=== PATIENT | male | born 1960 | race Hispanic/Latino ===

== ENCOUNTER 2016-07-22 15:21 | Inpatient (IN) | payer OTHER ==
[2016-07-22 15:22] VITALS: BMI 37.2
--- NOTE | 2016-07-22 16:13 | ED PDOC ---
HPI: General Adult Time Seen by Provider: 07/22/16 15:29 Chief Complaint (Nursing): Medical Clearance Chief Complaint (Provider): transfusion History Per: Patient History/Exam Limitations: no limitations Additional Complaint(s): 56yo male is sent from [facility] for blood transfusion after hemoglobin decreased by 1gram from previous due to minimal bleeding from left shoulder fracture. No active bleeding. Past Medical History Vital Signs: Last Vital Signs Temp 98.2 F 07/23/16 17:33 Pulse 68 07/23/16 17:33 Resp 20 07/23/16 17:33 BP 132/77 07/23/16 06:00 Pulse Ox 100 07/23/16 07:02 - Medical History PMH: Anemia, Anxiety, Arthritis, Back Problems, CHF (was told I had symptoms of CHF), COPD, Depression, Fractures (right arm, knee,back,), HTN Denies: Diabetes, Hepatitis, HIV, Chronic Kidney Disease, Seizures, Sexually Transmitted Disease - Surgical History Surgical History: Endoscopy - Family History Family History: States: Unknown Family Hx - Immunization History Hx Tetanus Toxoid Vaccination: No Hx Influenza Vaccination: No Hx Pneumococcal Vaccination: No - Home Medications Home Medications: Ambulatory Orders Medication Instructions Recorded FLUoxetine [Prozac] 20 mg PO DAILY cap 07/22/16 Folic Acid 1 mg PO DAILY #0 tab 07/22/16 Ketorolac Tromethamine [Toradol] 10 mg PO Q6 PRN #0 tab 07/22/16 Multimineral/Multivitamin 1 tab PO DAILY tab 07/22/16 [Therapeutic-M Tab] Thiamine [Vitamin B1 Tab] 100 mg PO DAILY tab 07/22/16 - Allergies Allergies/Adverse Reactions: Allergies Allergy/AdvReac Type Severity Reaction Status Date / Time No Known Allergies Allergy Verified 07/22/16 15:25 Review of Systems ROS Statement: Except As Marked, All Systems Reviewed And Found Negative Cardiovascular: Negative for: Chest Pain Respiratory: Negative for: Shortness of Breath Physical Exam - Reviewed Nursing Documentation Reviewed: Yes Vital Signs Reviewed: Yes - Physical Exam Head Exam: Positive for: ATRAUMATIC, NORMAL INSPECTION, NORMOCEPHALIC Skin: Positive for: Warm, Dry Eye Exam: Positive for: EOMI, PERRL, Other (ecchymosis to left eyelid) Cardiovascular/Chest: Positive for: Regular Rate, Rhythm Respiratory: Positive for: Normal Breath Sounds. Negative for: Rales, Rhonchi, Wheezing Extremity: Positive for: Other (left arm in sling but moving all digits) Neurologic/Psych: Positive for: Alert, Oriented - Laboratory Results Result Diagrams: 07/23/16 10:30 - ECG O2 Sat by Pulse Oximetry: 98 (RA) Pulse Ox Interpretation: Normal Medical Decision Making Medical Decision Making: Will transfuse 2 units. consent was obtained by Dr. Coffey. Will then discharge to [facility]. ED OBSERVATION Time of observation admission: 15:30 - Observation admission statement Patient is being placed in observation because:: Anemia Disposition - Clinical Impression Clinical Impression: Depression, Anemia - Patient ED Disposition Is Patient to be Admitted: Transfer of Care - Disposition Disposition Time: 00:00 Condition: STABLE Patient Signed Over To: Tomás Perry Handoff Comments: Pending transfusion, transfer to [facility]. Additional Comments - Additional Comments Additional Comments: Scribe Attestation: Documented by Jatin Santos acting as a scribe for Tessa Church MD Provider Scribe Attestation: All medical record entries made by the Scribe were at my direction and personally dictated by me. I have reviewed the chart and agree that the record accurately reflects my personal performance of the history, physical exam, medical decision making, and the department course for this patient. I have also personally directed, reviewed, and agree with the discharge instructions and disposition.
[2016-07-22] MEDS ORDERED: Iodixanol 320 MG/ML 100 ML BOTTLE IV ONE (16:54)
--- NOTE | 2016-07-23 | ED PDOC ---
- ECG O2 Sat by Pulse Oximetry: 100 Medical Decision Making Medical Decision Making: signout from Dr Church at midnight: pt to get second unit blood and then readmit to psych under psychiatrist Dr Gates pt got second unit. informed hoe worker Aleksandra to inform Dr gates of admission pt reaccepted to [facility] Disposition - Clinical Impression Clinical Impression: Depression - POA Present On Arrival: None - Disposition Disposition: Admitted as In-Patient Disposition Time: 05:00 Condition: IMPROVED
[2016-07-23] MEDS ORDERED: Magnesium Hydroxide Susp 30 ml UD PO PRN (05:19)
[2016-07-23] MEDS ORDERED: Bismuth Subsalicylate 262 mg/15 ml Sus (240 ml) PO PRN (05:19)
[2016-07-23] MEDS ORDERED: Alum-Mag Hydrox-Simethicone Susp (30 mL) PO PRN (05:19)
[2016-07-23] MEDS ORDERED: DiphenhydrAMINE 50 mg/ml Inj IM PRN (05:21)
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
[2016-07-23] MEDS: Multivitamin With Minerals Tab PO SCH (09:21)
[2016-07-23 10:36] LABS: BASO # 0.1 K/uL (0.0-0.2); BASO % 1.2 % (0.0-2.0); EOS # 0.2 K/uL (0.0-0.7); EOS % 4.6 % (0.0-4.0); HEMATOCRIT 24.1 % (35.0-51.0); LYMPH # 0.4 K/uL (1.0-4.3); LYMPH % 10.2 % (20.0-40.0); MEAN CELL VOLUME 76.4 fl (80.0-94.0); MEAN CORPUSCULAR HEMOGLOBIN 25.9 pg (27.0-31.0); MEAN CORPUSCULAR HGB CONC 33.9 g/dL (33.0-37.0); MEAN PLATELET VOLUME 8.5 fl (7.2-11.7); MONO # 0.6 K/uL (0.0-0.8); MONO % 14.5 % (0.0-10.0); NEUT % 69.5 % (50.0-75.0); RED CELL DISTRIBUTION WIDTH 17.2 % (11.5-14.5); WHITE BLOOD COUNT 4.4 K/uL (4.8-10.8)
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
[2016-07-23] MEDS ORDERED: Iodixanol 320 MG/ML 100 ML BOTTLE IV ONE (15:41)
[2016-07-23 23:03] VITALS: O2SAT 98
[2016-07-24 07:21] LABS: BASO % 0.7 % (0.0-2.0); EOS # 0.3 K/uL (0.0-0.7); EOS % 6.1 % (0.0-4.0); HEMATOCRIT 25.2 % (35.0-51.0); LYMPH # 0.6 K/uL (1.0-4.3); LYMPH % 13.5 % (20.0-40.0); MEAN CELL VOLUME 76.8 fl (80.0-94.0); MEAN CORPUSCULAR HEMOGLOBIN 25.4 pg (27.0-31.0); MEAN CORPUSCULAR HGB CONC 33.1 g/dL (33.0-37.0); MEAN PLATELET VOLUME 8.2 fl (7.2-11.7); MONO # 0.6 K/uL (0.0-0.8); MONO % 13.7 % (0.0-10.0); NEUT # 2.9 K/uL (1.8-7.0); NRBC % 0.1 % (0.0-0.0); RED CELL DISTRIBUTION WIDTH 17.7 % (11.5-14.5); WHITE BLOOD COUNT 4.4 K/uL (4.8-10.8)
[2016-07-24 07:37] LABS: BLOOD UREA NITROGEN 20 mg/dl (9-20); CARBON DIOXIDE 25 mmol/L (22-30); CHLORIDE 106 mmol/L (98-107); GFR AFRICAN-AMERICAN > 60; GLUCOSE,RANDOM 96 mg/dL (75-110); SODIUM 141 mmol/l (132-148)
[2016-07-24] MEDS: Multivitamin With Minerals Tab PO SCH (08:06)
--- NOTE | 2016-07-24 09:43 | PCM.PYCHPN ---
Psychiatric Progress Note - Psychiatric Progress Note Patient seen today, length of contact: Patient evaluated, case discussed with team, chart reviewed, 35 min Patient Chief Complaint: "I'm okay, in some pain" Problems Identified/Issues Discussed: Patient reports that his mood is starting to improve. He was oriented x3 and was able to engage pleasantly in conversation. He reports pain in his fractured arm. He denies current AH/VH/paranoia/delusions. He denied manic symptoms. He had normal rate/rhythm of speech. He has been eating and sleeping well. Medication Change: No Medical Record Reviewed: No Mental Status Examination - Cognitive Function Orientation: Person, Place, Situation, Time Memory: Intact Attention: WNL Concentration: WNL Association: WNL Fund of Knowledge: [facility] Decription of patient's judgement and insights: Fair I/J - Mood Mood: Depressed, Anxious - Affect Affect: Broad - Speech Speech: Appropriate - Formal Thought Process Formal Thought Process: No Impairment Psychotic Thoughts and Behaviors: NO AH/VH/paranoia/delusions - Suicidal Ideation Suicidal Ideation: No - Homicidal Ideation Homicidal Ideation: No Goal/Treatment Plan - Goal/Treatment Plan Need for Continued Stay: Remain at risks for inpatient hospitalization, Severe depression anxiety Progress Toward Problem(s) and Goals/Treatment Plan: 56 yo male with Major Depressive Disorder with Psychotic features, psychotic features now improved; cocaine abuse, alcohol abuse, benzodiazepine abuse; readmitted to [facility] after her received a blood transfusion, continues to report feelings of significant depression and anxiety. He requires inpatient psychiatric admission for treatment and stabilization. Plan: -Continue Prozac 20 mg PO Daily and Zyprexa 5 mg PO HS -Individual, group and mileu tx -Psychoeducation; patient counseled on the importance of compliance with medications and treatment -Orthopedic consult re: fractured (L) arm -Medicine consult appreciated -Possible discharge on Friday if symptoms continue to improve Estimated Date of D/C: 07/26/16
--- NOTE | 2016-07-24 13:30 | CT ---
PROCEDURE: Left upper extremity CT angiography with and without contrast. HISTORY: communited fx left humerus. TECHNIQUE: 2.5 millimeter Contiguous axial images of the left upper extremity were obtained pre and post IV contrast. Contrast phase is venous. Coronal and sagittal reformats or also generated. IV contrast dose: 100 cubic centimeters Visipaque 320 Radiation: 2563.54 mGy-cm FINDINGS: Vasculature: The visualized aortic arch and major branches are normal. Left subclavian artery, axillary artery, brachial artery are normal. No evidence of vascular injury. Subclavian vein, axillary vein, basilic vein, brachial vein and remainder veins in the arm are normal. OSSEOUS: Severely comminuted fracture left humeral head and metaphysis. The humeral shaft is impacted and displaced laterally. There is significant soft tissue swelling of the rotator cuff muscles and deltoid. IMPRESSION: Severely comminuted fracture of the left humeral head. No signs of injury to axillary artery or vein.
[2016-07-25 08:23] LABS: BASO # 0.1 K/uL (0.0-0.2); BASO % 1.1 % (0.0-2.0); EOS # 0.3 K/uL (0.0-0.7); EOS % 5.4 % (0.0-4.0); HEMATOCRIT 26.9 % (35.0-51.0); LYMPH # 0.7 K/uL (1.0-4.3); MEAN CELL VOLUME 78.4 fl (80.0-94.0); MEAN CORPUSCULAR HEMOGLOBIN 25.4 pg (27.0-31.0); MEAN CORPUSCULAR HGB CONC 32.4 g/dL (33.0-37.0); MEAN PLATELET VOLUME 8.7 fl (7.2-11.7); MONO # 0.6 K/uL (0.0-0.8); MONO % 11.8 % (0.0-10.0); NEUT # 3.4 K/uL (1.8-7.0); NEUT % 67.7 % (50.0-75.0); RED CELL DISTRIBUTION WIDTH 18.5 % (11.5-14.5)
[2016-07-25] MEDS: Multivitamin With Minerals Tab PO SCH (08:27)
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
[2016-07-25 16:35] VITALS: RESP 18
[2016-07-26 06:00] VITALS: BP 127/73; PULSE 68; TEMP 97
[2016-07-26] MEDS: Multivitamin With Minerals Tab PO SCH (08:41)
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
== END 2016-07-26 14:30 | disposition home or self-care (01) | DRG 430 ==
LOC: H.ER 15:21 → H.EROBSV 15:30 → OBSVTOIN 07-23 03:11 → H.ERHOLD 07-23 03:11 → H.STEP 07-23 04:32
PROVIDERS: ADMIT Psychiatry & Neurology Psychiatry; ATTEND Psychiatry & Neurology Psychiatry
PROC: 30233N1 Transfusion of Nonautologous Red Blood Cells into Peripheral Vein, Percutaneous Approach (ICD-10-PCS; principal; 2016-07-23)
DX: F32.3 Major depressive disorder, single episode, severe with psychotic features (principal); D62 Acute posthemorrhagic anemia; I10 Essential (primary) hypertension; J44.9 Chronic obstructive pulmonary disease, unspecified; F14.10 Cocaine abuse, uncomplicated; D64.9 Anemia, unspecified; F10.10 Alcohol abuse, uncomplicated; S42.302D Unspecified fracture of shaft of humerus, left arm, subsequent encounter for fracture with routine healing; F19.10 Other psychoactive substance abuse, uncomplicated; F41.9 Anxiety disorder, unspecified

== ENCOUNTER 2016-08-19 20:27 | Emergency (ER) | payer SELFPAY ==
[2016-08-19 20:27] VITALS: BMI 37.2
[2016-08-19 20:30] VITALS: BP 125/76; PULSE 86; RESP 18; TEMP 99; O2SAT 100
--- NOTE | 2016-08-19 22:09 | ED PDOC ---
HPI: General Adult Time Seen by Provider: 08/19/16 21:12 Chief Complaint (Nursing): Dizziness/Lightheaded Chief Complaint (Provider): Dizziness/Lightheadedness History Per: Patient History/Exam Limitations: no limitations Onset/Duration Of Symptoms: Days (x1) Additional Complaint(s): 21:12 Bonilla Suero is a 56 year old male with a history of hypertension, alcohol abuse , psychosis, and multiple orthopedic surgeries that presents to the ED with a chief complaint of intermittent dizziness and lightheadedness that he has been experiencing for the past day. Patient denies any headache, chest pain, or syncope, as well as denies any hallucinations, or suicidal/homicidal ideations. Of Note: Patient has no PMD at the moment Past Medical History Reviewed: Historical Data, Nursing Documentation, Vital Signs Vital Signs: Last Vital Signs Temp 99 F 08/19/16 20:28 Pulse 86 08/19/16 20:28 Resp 18 08/19/16 20:28 BP 125/76 08/19/16 20:28 Pulse Ox 100 08/20/16 06:32 - Medical History PMH: Anemia, Anxiety, Arthritis, Back Problems, CHF (was told I had symptoms of CHF), COPD, Depression, Fractures (right arm, knee,back,), HTN Denies: Diabetes, Hepatitis, HIV, Chronic Kidney Disease, Seizures, Sexually Transmitted Disease - Surgical History Surgical History: Endoscopy - Family History Family History: States: Unknown Family Hx - Immunization History Hx Tetanus Toxoid Vaccination: No Hx Influenza Vaccination: No Hx Pneumococcal Vaccination: No - Home Medications Home Medications: Ambulatory Orders Medication Instructions Recorded FLUoxetine [Prozac] 20 mg PO DAILY #30 cap 07/26/16 Folic Acid 1 mg PO DAILY #30 tab 07/26/16 Ibuprofen [Motrin Tab] 600 mg PO Q6 PRN #30 tab 07/26/16 Olanzapine [Zyprexa] 5 mg PO HS #30 tablet 07/26/16 Thiamine [Vitamin B1 Tab] 100 mg PO DAILY #30 tab 07/26/16 - Allergies Allergies/Adverse Reactions: Allergies Allergy/AdvReac Type Severity Reaction Status Date / Time No Known Allergies Allergy Verified 07/22/16 15:25 Review of Systems Cardiovascular: Positive for: Light Headedness. Negative for: Chest Pain Neurological: Positive for: Dizziness. Negative for: Headache, Other (no syncope) Psych: Negative for: Suicidal ideation (no SI/HI or hallucinations) Physical Exam - Reviewed Nursing Documentation Reviewed: Yes Vital Signs Reviewed: Yes - Physical Exam Appears: Positive for: Non-toxic, No Acute Distress (Patient appears somewhat disheveled) Head Exam: Positive for: ATRAUMATIC, NORMOCEPHALIC Skin: Positive for: Normal Color, Warm Eye Exam: Positive for: Normal appearance, EOMI, PERRL Cardiovascular/Chest: Positive for: Regular Rate, Rhythm. Negative for: Murmur Respiratory: Positive for: Normal Breath Sounds. 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 Negative for: Motor/Sensory Deficits, Cerebellar Tests, Facial Droop - Laboratory Results Result Diagrams: 08/20/16 00:15 08/20/16 00:15 - ECG O2 Sat by Pulse Oximetry: 100 (RA) Pulse Ox Interpretation: Normal - CT Scan/US CT head Other Rad Studies (CT/US): Interpreted By Me, Read By Radiologist Other Rad Interpretation: no acute findings Medical Decision Making Medical Decision Makin:54 Initial Impression: Dehydration vs. Cardiac Arrhythmia vs. Vertigo (Central vs. Peripheral) Initial Plan: * CBC * Alcohol * BMP * Troponin * EKG * CT Head w/o contract * Reevaluation Scribe Attestation: Documented by Tonya Doss, acting as a scribe for Brielle Herrera MD. Provider Scribe Attestation: All medical record entries made by the Scribe were at my direction and personally dictated by me. I have reviewed the chart and agree that the record accurately reflects my personal performance of the history, physical exam, medical decision making, and the department course for this patient. I have also personally directed, reviewed, and agree with the discharge instructions and disposition. Disposition - Clinical Impression Clinical Impression: Dizziness - Patient ED Disposition Is Patient to be Admitted: Transfer of Care - Disposition Referrals: [facility] [Outside] Disposition: Transfer of Care Disposition Time: 12:00 Condition: FAIR Instructions: Dizziness (ED) Patient Signed Over To: Doron Mesa
--- NOTE | 2016-08-19 23:25 | CT ---
EXAM: CT Head Without Intravenous Contrast CLINICAL HISTORY: 56 years old, male; Signs and symptoms; Dizziness TECHNIQUE: Axial computed tomography images of the head/brain without intravenous contrast. This CT exam was performed using one or more of the following dose reduction techniques: automated exposure control, adjustment of the mA and/or kV according to patient size, and/or use of iterative reconstruction technique. Coronal and sagittal reformatted images were created and reviewed. COMPARISON: CT - HEAD W/O CONTRAST 06/18/2016 7:52:52 PM FINDINGS: Brain: There is mild prominence of ventricles and sulci, compatible with mild atrophy. There is mild diminished density of the white matter bilaterally, consistent with mild microangiopathy. There is no evidence of intracranial hemorrhage. No evidence of acute territorial infarction. No edema. Ventricles: See above. Bones/joints: Unremarkable. No acute fracture. Soft tissues: Unremarkable. Sinuses: There is mucosal thickening of multiple right ethmoid air cells. Mucosal thickening of the right maxillary sinus. Mastoid air cells: Unremarkable as visualized. No mastoid effusion. IMPRESSION: 1. No evidence for acute intracranial abnormality or displaced calvarial fracture. 2. Additional incidental and/or chronic findings as described.
[2016-08-20 00:37] LABS: BASO # 0.1 K/uL (0.0-0.2); BASO % 1.1 % (0.0-2.0); EOS # 0.2 K/uL (0.0-0.7); HEMATOCRIT 32.8 % (35.0-51.0); LYMPH # 0.9 K/uL (1.0-4.3); MEAN CORPUSCULAR HEMOGLOBIN 25.4 pg (27.0-31.0); MEAN CORPUSCULAR HGB CONC 32.1 g/dL (33.0-37.0); MEAN PLATELET VOLUME 8.6 fl (7.2-11.7); MONO # 0.6 K/uL (0.0-0.8); MONO % 11.3 % (0.0-10.0); NEUT # 3.5 K/uL (1.8-7.0); NEUT % 66.6 % (50.0-75.0); NRBC % 0.2 % (0.0-0.0); RED CELL DISTRIBUTION WIDTH 20.2 % (11.5-14.5); WHITE BLOOD COUNT 5.2 K/uL (4.8-10.8)
[2016-08-20 00:45] LABS: ALCOHOL SERUM < 10 mg/dl (0-10); BLOOD UREA NITROGEN 30 mg/dl (9-20); CALCIUM 9.2 mg/dL (8.4-10.2); CARBON DIOXIDE 23 mmol/L (22-30); CHLORIDE 107 mmol/L (98-107); GFR AFRICAN-AMERICAN > 60; GLUCOSE,RANDOM 88 mg/dL (75-110); POTASSIUM 4.3 MMOL/L (3.6-5.0); SODIUM 143 mmol/l (132-148)
--- NOTE | 2016-08-20 02:28 | ED PDOC ---
- Laboratory Results Result Diagrams: 08/20/16 00:15 08/20/16 00:15 - ECG O2 Sat by Pulse Oximetry: 100 (RA) Medical Decision Making Medical Decision Making: Patient s/o from Dr. Herrera at 0000 pending re-eval. 0400: On re-eval, patient states he is feeling better. Denies SI or HI. Reports he is not depressed currently. Will d/c in AM. Scribe Attestation: Documented by Tia Hernández acting as a scribe for Doron Mesa MD. Provider Scribe Attestation: All medical record entries made by the Scribe were at my direction and personally dictated by me. I have reviewed the chart and agree that the record accurately reflects my personal performance of the history, physical exam, medical decision making, and the department course for this patient. I have also personally directed, reviewed, and agree with the discharge instructions and disposition. Disposition - Clinical Impression Clinical Impression: Dizziness - POA Present On Arrival: None - Disposition Referrals: [facility] [Outside] Disposition: Routine/Home Disposition Time: 04:00 Condition: STABLE Instructions: Dizziness (ED)
== END 2016-08-20 06:30 | disposition home or self-care (01) ==
LOC: H.ER 20:27
DX: R42 Dizziness and giddiness (principal); I10 Essential (primary) hypertension
CPT/HCPCS: 70450; 80048; 84484; 85025; G0480

== ENCOUNTER 2016-09-05 00:09 | Emergency (ER) | payer SELFPAY ==
[2016-09-05 00:09] VITALS: BMI 37.2
[2016-09-05 00:21] VITALS: BP 149/65; RESP 18
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
--- NOTE | 2016-09-05 02:10 | CT ---
EXAM: CT Head Without Intravenous Contrast CLINICAL HISTORY: 56 years old, male; Pain; Headache TECHNIQUE: Axial computed tomography images of the head/brain without intravenous contrast. This CT exam was performed using one or more of the following dose reduction techniques: automated exposure control, adjustment of the mA and/or kV according to patient size, and/or use of iterative reconstruction technique. Coronal and sagittal reformatted images were created and reviewed. COMPARISON: CT - HEAD W/O CONTRAST 08/19/2016 11:01:17 PM FINDINGS: Limitations: Motion artifact - mild. Brain: Minimal atrophy. No definite intracranial hemorrhage. No mass. Minimal decreased attenuation within periventricular white matter. No definite edema. Ventricles: No hydrocephalus. Bones/joints: No acute fracture. Soft tissues: Skin blake. Sinuses: Moderate mucosal thickening of RIGHT maxillary, RIGHT sphenoid sinuses. Mild mucosal thickening of RIGHT frontal, RIGHT ethmoid sinuses. Mastoid air cells: No mastoid effusion. Orbits: Unremarkable as visualized. IMPRESSION: 1. No definite intracranial hemorrhage. 2. Nonspecific white matter changes. 3. Sinus disease. 4. Incidental/non-acute findings are described above.
[2016-09-05 03:12] LABS: BASO % 0.2 % (0.0-2.0); HEMATOCRIT 29.1 % (35.0-51.0); LYMPH # 0.3 K/uL (1.0-4.3); LYMPH % 5.9 % (20.0-40.0); MEAN CELL VOLUME 78.3 fl (80.0-94.0); MEAN CORPUSCULAR HEMOGLOBIN 26.2 pg (27.0-31.0); MEAN CORPUSCULAR HGB CONC 33.5 g/dL (33.0-37.0); MEAN PLATELET VOLUME 8.5 fl (7.2-11.7); MONO # 0.5 K/uL (0.0-0.8); MONO % 11.1 % (0.0-10.0); NEUT # 3.6 K/uL (1.8-7.0); NEUT % 82.8 % (50.0-75.0); NRBC % 0.2 % (0.0-0.0); PLATELET COUNT 47 K/uL (130-400); RED CELL DISTRIBUTION WIDTH 19.6 % (11.5-14.5); WHITE BLOOD COUNT 4.4 K/uL (4.8-10.8)
[2016-09-05 03:14] LABS: CHLORIDE 104 mmol/L (98-107)
[2016-09-05 03:15] LABS: POTASSIUM 3.9 MMOL/L (3.6-5.0); SODIUM 135 mmol/l (132-148)
[2016-09-05 03:17] LABS: ALB/GLOB RATIO 0.9 (1.0-2.1); AST/SGOT 64 U/L (17-59); BLOOD UREA NITROGEN 16 mg/dl (9-20); CARBON DIOXIDE 22 mmol/L (22-30); GFR AFRICAN-AMERICAN > 60; TOTAL PROTEIN 6.9 G/DL (6.3-8.2)
[2016-09-05 03:18] LABS: ALKALINE PHOSPHATASE 284 U/L (38-126); ALT/SGPT 44 U/L (21-72); CALCIUM 8.2 mg/dL (8.4-10.2); GLUCOSE,RANDOM 131 mg/dL (75-110)
[2016-09-05 03:21] LABS: RBC URINE 5 /hpf (0-3); URINE BACTERIA RARE (<OCC); URINE BILIRUBIN SMALL (NEGATIVE); URINE BLOOD MODERATE (NEGATIVE); URINE COLOR AMBER (YELLOW); URINE GLUCOSE (UA) NEG (Normal); URINE KETONE NEGATIVE (NEGATIVE); URINE LEUKOCYTE ESTERASE NEG Leu/uL (Negative); URINE PROTEIN 100 mg/dL (NEGATIVE); WBC URINE 2 /hpf (0-5)
[2016-09-05 05:33] VITALS: PULSE 73; TEMP 99.8
[2016-09-05 06:02] LABS: NEUTROPHIL 76 % (42-75); TOTAL CELLS COUNTED 100
[2016-09-05 06:44] VITALS: O2SAT 96
--- NOTE | 2016-09-05 08:53 | RAD ---
HISTORY: Weakness COMPARISON: 07/19/2016 TECHNIQUE: Chest PA and lateral FINDINGS: LUNGS: The lungs are hyperinflated and there is peribronchial thickening with chronic changes in both lungs. There is no focal consolidation. PLEURA: No significant pleural effusion identified. No pneumothorax apparent. CARDIOVASCULAR: Normal. OSSEOUS STRUCTURES: Within normal limits for the patient's age. Status is post ACDF in the lower cervical spine. VISUALIZED UPPER ABDOMEN: Normal. OTHER FINDINGS: None. IMPRESSION: No active pulmonary disease. COPD.
== END 2016-09-05 04:25 | disposition home or self-care (01) ==
LOC: H.ER 00:09
DX: R53.1 Weakness (principal); M62.81 Muscle weakness (generalized); D64.9 Anemia, unspecified; F41.9 Anxiety disorder, unspecified; I50.9 Heart failure, unspecified; R51 Headache; J44.9 Chronic obstructive pulmonary disease, unspecified; R42 Dizziness and giddiness